=== PATIENT | female | born 1965 | race Caucasian/White ===

== ENCOUNTER 2017-08-20 15:00 | Emergency (ER) | payer OTHER ==
[2017-08-20 15:58] LABS: BASOPHILS # (AUTO) 0.1 10^3/uL (0.0-0.1); BASOPHILS % (AUTO) 0.9 %; EOSINOPHILS # (AUTO) 0.2 10^3/uL (0.0-0.7); EOSINOPHILS % (AUTO) 2.7 %; HGB - HEMOGLOBIN 13.8 g/dL (12.0-16.0); LYMPHOCYTES # (AUTO) 2.6 10^3/uL (1.5-3.5); LYMPHOCYTES % (AUTO) 36.8 %; MEAN CORPUSCULAR HEMOGLOBIN 28.2 pg (27.0-31.0); MEAN CORPUSCULAR HGB CONC 33.2 g/dL (32.0-36.0); MEAN CORPUSCULAR VOLUME 85.1 fL (81.0-99.0); MEAN PLATELET VOLUME 9.2 fL (7.9-10.8); MONOCYTES # (AUTO) 0.6 10^3/uL (0.0-1.0); MONOCYTES % (AUTO) 8.7 %; NEUTROPHILS # (AUTO) 3.6 10^3/uL (1.5-6.6); NEUTROPHILS % (AUTO) 50.9 %; PLT - PLATELET COUNT 351 10^3/uL (130-450); RED CELL DISTRIBUTION WIDTH 14.6 % (12.0-15.0); WHITE BLOOD COUNT 7.1 x10^3/uL (4.8-10.8)
[2017-08-20 16:06] LABS: BILIRUBIN,TOTAL 0.6 mg/dL (0.2-1.0); CALCIUM 9.2 mg/dL (8.5-10.3); CREATININE 0.7 mg/dL (0.4-1.0); MAGNESIUM 1.9 mg/dL (1.7-2.8); TOTAL PROTEIN 7.9 g/dL (6.7-8.2)
[2017-08-20 17:35] VITALS: BP 113/82
--- NOTE | 2017-08-20 17:41 | Ultrasound Report ---
EXAM: BILATERAL LOWER EXTREMITY VENOUS ULTRASOUND EXAM DATE: 08/20/2017 05:24 PM. CLINICAL HISTORY: Leg pains. COMPARISON: None. TECHNIQUE: Real-time sonographic vascular imaging was performed by the power generation turbine room operator through the lower extremities utilizing both color-flow and Doppler spectral analysis. Multiple patient admitting representative static i mages were saved for review. FINDINGS: Right: Common Femoral Vein (CFV): Normal. CFV-GSV Junction: Normal. Profunda Femoral Vein (PFV): Normal. Femoral Vein (FV) Prox: Normal. Femoral Vein (FV) Mid: Normal. Femoral Vein (FV) Dist: Normal. Popliteal Vein: Normal. Posterior Tibial Veins: Normal. Peroneal Veins: Normal. Left: Common Femoral Vein (CFV): Normal. CFV-GSV Junction: Normal. Profunda Femoral Vein (PFV): Normal. Femoral Vein (FV) Prox: Normal. Femoral Vein (FV) Mid: Normal. Femoral Vein (FV) Dist: Normal. Popliteal Vein: Normal. Posterior Tibial Veins: Normal. Peroneal Veins: Normal. Other: None. IMPRESSION: No evidence for deep venous thrombosis bilaterally. [facility] Referring Provider Line: [phone] SITE ID: [id number]
--- NOTE | 2017-08-20 17:41 | Ultrasound Preliminary Report ---
Exam: US DUPLEX EXT VEINS BILATERAL IMPRESSION: No evidence for deep venous thrombosis bilaterally. [facility] SITE ID: [id number]
--- NOTE | 2017-08-20 18:00 | ED Physician Documentation ---
PD HPI LOWER EXT INJURY - Stated complaint Stated Complaint: SOA, LEG PX - Chief complaint Chief Complaint: General - History obtained from History obtained from: Patient - History of Present Illness PD HPI LOW EXT INJURY LOCATION: Both Type of injury: Other (having cramping pains intermittently for few days.). No : Fall, Twist Timing - onset: How many weeks ago (1-2 weeks of intermittent leg cramps, more on right calf, without edema per se. Some dyspnea at times. Not exertional leg pains. No noted injury.) Timing - details: Gradual onset, Intermittant Improved by: No: Rest Worsened by: Moving Associated symptoms: No: Weakness, Numbness, Swelling Contributing factors: No: Anticoagulated Similar symptoms before: Has not had sx before Recently seen: Clinic (seen in clinic and had outpt ddmier that was elevated so referred to ED for U/S.) Review of Systems Constitutional: denies: Fever, Chills Nose: denies: Rhinorrhea / runny nose, Congestion Throat: denies: Sore throat Cardiac: denies: Chest pain / pressure, Palpitations Respiratory: reports: Dyspnea. denies: Cough, Wheezing GI: denies: Abdominal Pain, Nausea, Vomiting Skin: denies: Rash, Lesions Musculoskeletal: reports: Extremity pain. 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 Home Medications: Ambulatory Orders Medication Instructions Recorded Confirmed Levothyroxine Sodium [Tirosint] 125 mcg PO DAILY 11/07/14 08/20/17 buPROPion [Wellbutrin Sr] 100 mg PO DAILY 11/07/14 08/20/17 - Allergies Allergies/Adverse Reactions: Allergies Allergy/AdvReac Type Severity Reaction Status Date / Time meperidine HCl * Allergy Headache Verified 08/20/17 15:14 [From Demerol] - Social History Does the pt smoke?: No Smoking Status: Never smoker Does the pt drink ETOH?: No Does the pt have substance abuse?: No - Immunizations Immunizations are current?: Yes PD ED PE NORMAL - Vitals Vital signs reviewed: Yes - General General: Alert and oriented X 3, No acute distress, Well developed/nourished - HEENT HEENT: Pharynx benign - Neck Neck: Supple, no meningeal sign, No adenopathy - Cardiac Cardiac: RRR, No murmur - Respiratory Respiratory: Clear bilaterally - Abdomen Abdomen: Normal bowel sounds, Soft, Non tender, Non distended - Back Back: No CVA TTP - Derm Derm: Normal color, Warm and dry - Extremities Extremities: No deformity, No tenderness to palpate, Normal ROM s pain, No edema , Other (some tenderness calves, more to the right. ) - Neuro Neuro: Alert and oriented X 3, No motor deficit, Normal speech Results - Vitals Vitals: Oxygen O2 Source Room air - Labs Labs: Laboratory Tests 08/20/17 08/20/17 08/20/17 15:20 15:20 15:20 WBC 7.1 RBC 4.90 Hgb 13.8 Hct 41.7 MCV 85.1 MCH 28.2 MCHC 33.2 RDW 14.6 Plt Count 351 MPV 9.2 Neut # 3.6 Lymph # 2.6 Titus # 0.6 Eos # 0.2 Baso # 0.1 Absolute Nucleated RBC 0.01 Nucleated RBC % 0.1 Sodium 136 Potassium 3.5 Chloride 101 Carbon Dioxide 25 Anion Gap 10.0 BUN 14 Creatinine 0.7 Estimated GFR (MDRD) 88 L Glucose 96 Calcium 9.2 Magnesium 1.9 Total Bilirubin 0.6 AST 34 ALT 31 Alkaline Phosphatase 70 Troponin I < 0.04 B-Natriuretic Peptide Total Protein 7.9 Albumin 4.0 Globulin 3.9 Albumin/Globulin Ratio 1.0 Lipase 25 08/20/17 15:20 WBC RBC Hgb Hct MCV MCH MCHC RDW Plt Count MPV Neut # Lymph # Titus # Eos # Baso # Absolute Nucleated RBC Nucleated RBC % Sodium Potassium Chloride Carbon Dioxide Anion Gap BUN Creatinine Estimated GFR (MDRD) Glucose Calcium Magnesium Total Bilirubin AST ALT Alkaline Phosphatase Troponin I B-Natriuretic Peptide 23 Total Protein Albumin Globulin Albumin/Globulin Ratio Lipase - Rads (name of study) duplex U/S legs Radiology: Prelim report reviewed (no DVTs) PD MEDICAL DECISION MAKING - ED course Complexity details: reviewed results (venous U/S is negative for DVT. Labs are good with low normal K, but not liekly cause for cramps at that level. ), re- evaluated patient, considered differential (not exertional, so not sounding claudication per se. No edema but with leg crampings, will check U/S (since already had outpt d-dimer that was some elevated) and lytes. ), d/w patient Departure - Departure Disposition: 01 Home, Self Care Clinical Impression: Leg cramping Clinical Impression: (Ruled Out): DVT (deep venous thrombosis) Record reviewed to determine appropriate education?: Yes Comments: No signs of blood clots on your ultrasound. Drink lots of fluids. Use some Tylenol ibuprofen if needed for pains. Follow-up with your primary care if persistent problems. Discharge Date/Time: 08/20/17 18:15
== END 2017-08-20 18:15 | disposition home or self-care (01) ==
LOC: ED 15:00
DX: R25.2 Cramp and spasm (principal); E78.00 Pure hypercholesterolemia, unspecified; E03.9 Hypothyroidism, unspecified; Z86.718 Personal history of other venous thrombosis and embolism; Z86.711 Personal history of pulmonary embolism
CPT/HCPCS: 36415; 80053; 83690; 83735; 83880; 84484; 85025; 93970; 99283

== ENCOUNTER 2018-04-22 09:34 | Outpatient (CLI) | payer BC ==
--- NOTE | 2018-04-23 09:11 | Mammography Report ---
Reason: SCREENING MAMMO Procedure Date: 04/22/2018 Accession Number: [id number] / [id number] Procedure: MGN - Screening Mammo Dig Bilat CPT Code: FULL RESULT: EXAM: Screening Mammo Dig Bilat DATE: 04/22/2018 9:55 AM CLINICAL HISTORY: Screening encounter. History of early menses. TECHNIQUE: Bilateral CC, laterally exaggerated CC, MLO views were obtained. COMPARISON: 07/07/2015 through 11/21/2012. FINDINGS: The breasts demonstrate scattered fibroglandular densities bilaterally. No suspicious masses, clustered microcalcifications, or regions of architectural distortion are identified. IMPRESSION: Negative examination RECOMMENDATION: Routine annual screening unless otherwise clinically indicated. BIRADS CATEGORY 1: Negative STANDARD QUALIFYING STATEMENTS: 1. This examination was reviewed with the aid of Computer-Aided Detection (CAD). 2. A negative or benign imaging report should not preclude biopsy if clinically suspicious findings are present. 3. Dense breasts may obscure an underlying neoplasm. 4. This examination was reviewed without the aid of 3D breast imaging (tomosynthesis).
== END 2018-04-22 09:35 | disposition home or self-care (01) ==
LOC: DI.N 09:34
DX: Z12.31 Encounter for screening mammogram for malignant neoplasm of breast (principal)
CPT/HCPCS: 77067

== ENCOUNTER 2018-10-18 14:47 | Emergency (ER) | payer BC ==
--- NOTE | 2018-10-18 14:58 | ED Physician Documentation ---
History of Present Illness - Stated complaint Stated Complaint: SOA/TIGHT CHEST - Chief complaint Chief Complaint: Cardiac - History obtained from History obtained from: Patient - Additonal information Additional information: Patient is a 53-year-old female presenting with about a week and a half of intermittent chest pressure and shortness of breath with nonproductive cough, but no fever. Patient does have history of DVT and PE, but is no longer on anticoagulation. It was determined that the likely cause of her DVT was being placed on hormone therapy for menopause, which she is no longer taking. Patient denies leg swelling, pain, skin changes, recent travel, immobility. 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 - Present Medications Home Medications: Ambulatory Orders Medication Instructions Recorded Confirmed RX: Levothyroxine Sodium [Tirosint] 125 mcg PO DAILY 11/07/14 08/20/17 buPROPion [Wellbutrin Sr] 100 mg PO DAILY 11/07/14 08/20/17 RX: Aspirin 325 mg DAILY PM 10/18/18 10/18/18 - Allergies Allergies/Adverse Reactions: Allergies Allergy/AdvReac Type Severity Reaction Status Date / Time meperidine HCl * Allergy Headache Verified 10/18/18 14:55 [From Demerol] - Social History Does the pt smoke?: No Smoking Status: Never smoker Does the pt drink ETOH?: No Does the pt have substance abuse?: No - Immunizations Immunizations are current?: Yes Results - Vitals Vitals: Vital Signs - 24 hr 10/18/18 10/18/18 10/18/18 14:51 15:34 17:43 Temperature 36.5 C 36.6 C Heart Rate 115 H 107 H 97 Respiratory 18 18 16 Rate Blood Pressure 173/95 H 152/82 H 111/76 O2 Saturation 99 97 99 Oxygen O2 Source Room air - EKG (time done) 1502 Rate: Rate (enter#) (108) Rhythm: Sinus tachycardia - Labs Labs: Laboratory Tests 10/18/18 10/18/18 10/18/18 15:20 15:20 15:20 WBC 7.0 RBC 4.82 Hgb 14.0 Hct 41.9 MCV 86.9 MCH 29.0 MCHC 33.4 RDW 14.2 Plt Count 385 MPV 10.3 Neut # (Auto) 4.0 Lymph # (Auto) 2.1 [place] # (Auto) 0.6 Eos # (Auto) 0.2 Baso # (Auto) 0.1 Absolute Nucleated RBC 0.00 Nucleated RBC % 0.0 Sodium 140 Potassium 3.6 Chloride 103 Carbon Dioxide 26 Anion Gap 11.0 BUN 14 Creatinine 0.8 Estimated GFR (MDRD) 75 L Glucose 150 H Calcium 9.4 Total Bilirubin 0.7 AST 34 ALT 39 Alkaline Phosphatase 69 Troponin I < 0.04 Troponin I High Sens 4.7 Total Protein 8.0 Albumin 4.1 Globulin 3.9 Albumin/Globulin Ratio 1.1 Lipase 33 TSH 10/18/18 15:21 WBC RBC Hgb Hct MCV MCH MCHC RDW Plt Count MPV Neut # (Auto) Lymph # (Auto) [place] # (Auto) Eos # (Auto) Baso # (Auto) Absolute Nucleated RBC Nucleated RBC % Sodium Potassium Chloride Carbon Dioxide Anion Gap BUN Creatinine Estimated GFR (MDRD) Glucose Calcium Total Bilirubin AST ALT Alkaline Phosphatase Troponin I Troponin I High Sens Total Protein Albumin Globulin Albumin/Globulin Ratio Lipase TSH 1.95 PD MEDICAL DECISION MAKING - ED course Complexity details: reviewed results, re-evaluated patient, considered differential, d/w patient, d/w family ED course: Patient presenting with concerns for recurrence of PE, particularly as patient is not anticoagulated. Do not have high suspicion for OK, ACS, unstable angina, dissection, aneurysm, but considered. EKG and cardiac enzymes obtained which not reflect ischemia or other significant arrhythmia. Chest x-ray also did not show significant or concerning findings. No signs of pneumonia, pulmonary edema, or other pathology. Remainder of work-up also returned relatively unremarkable. CTA chest obtained which not find evidence of PE or other complication. At this time, feel that patient is safe to discharge home and discussed other etiologies including environmental allergies, esophageal spasm, GERD, anxiety with patient and family. Also discussed other supportive cares, return precautions and need for follow-up. Patient voiced understanding and is comfortable with discharge plan Departure - Departure Disposition: 01 Home, Self Care Clinical Impression: Chest wall pain Condition: Good Instructions: ED Chest Pain Atypical Unkn Cause Follow-Up: DAVID JOHNSON PA-C [Primary Care Provider] - Within 3 Days Comments: Please continue any home medications as previously instructed. Please follow-up with your primary care physician in next 2 to 3 days and return to ED sooner if experience worsening symptoms. Discharge Date/Time: 10/18/18 18:05
[2018-10-18] MEDS ORDERED: SODIUM CHLORIDE 0.9% 1,000 ML IV ONE (15:19)
[2018-10-18 15:28] LABS: BASOPHILS # (AUTO) 0.1 10^3/uL (0.0-0.1); BASOPHILS % (AUTO) 0.9 %; EOSINOPHILS # (AUTO) 0.2 10^3/uL (0.0-0.7); EOSINOPHILS % (AUTO) 2.9 %; LYMPHOCYTES # (AUTO) 2.1 10^3/uL (1.5-3.5); LYMPHOCYTES % (AUTO) 30.5 %; MEAN CORPUSCULAR HGB CONC 33.4 g/dL (32.0-36.0); MEAN CORPUSCULAR VOLUME 86.9 fL (81.0-99.0); MEAN PLATELET VOLUME 10.3 fL (7.9-10.8); MONOCYTES # (AUTO) 0.6 10^3/uL (0.0-1.0); MONOCYTES % (AUTO) 8.2 %; NEUTROPHILS % (AUTO) 57.2 %; PLT - PLATELET COUNT 385 10^3/uL (130-450); RED BLOOD COUNT 4.82 10^6/uL (4.20-5.40); RED CELL DISTRIBUTION WIDTH 14.2 % (12.0-15.0)
[2018-10-18 15:37] LABS: ALBUMIN 4.1 g/dL (3.2-5.5); ALBUMIN/GLOBULIN RATIO 1.1 (1.0-2.2); BILIRUBIN,TOTAL 0.7 mg/dL (0.2-1.0); CALCIUM 9.4 mg/dL (8.5-10.3); CREATININE 0.8 mg/dL (0.4-1.0)
[2018-10-18 15:42] LABS: TROPONIN I < 0.04 ng/mL (<0.49)
--- NOTE | 2018-10-18 15:44 | XRAY Report ---
Reason: CP/SOB Procedure Date: 10/18/2018 Accession Number: [id number] / [id number] Procedure: XR - Chest 1 View X-Ray CPT Code: 21567 FULL RESULT: EXAM: CHEST RADIOGRAPHY EXAM DATE: 10/18/2018 03:31 PM. CLINICAL HISTORY: Chest pain and shortness of breath for 2 weeks. COMPARISON: CHEST 1 VIEW 11/07/2014 12:47 PM. TECHNIQUE: 1 view. FINDINGS: Lungs/Pleura: No focal opacities evident. No pleural effusion. No pneumothorax. Mediastinum: Within exam limitations, the cardiomediastinal contour is unchanged with apparent mild borderline cardiomegaly possibly due to AP portable technique. Other: None. IMPRESSION: Stable examination with no acute superimposed cardiopulmonary abnormality. [facility]
[2018-10-18] MEDS ORDERED: IOVERSOL 320 100 ML VIAL IVP ONE ×2 (16:33→16:57)
--- NOTE | 2018-10-18 17:24 | CT Report ---
Reason: history of PE, concern for recurrence Procedure Date: 10/18/2018 Accession Number: [id number] / [id number] Procedure: CT - ANGIO CHEST W/WO CPT Code: FULL RESULT: EXAM: CT ANGIOGRAM CHEST EXAM DATE: 10/18/2018 04:50 PM. CLINICAL HISTORY: History of PE, concern for recurrence. COMPARISON: CHEST 1 VIEW 10/18/2018 3:17 PM. TECHNIQUE: Routine helical imaging was performed through the chest in the pulmonary arterial phase. IV Contrast: OPTI 320 80 mL. Reconstructions: Coronal 3-D MIP reconstructions.Sagittal and coronal. In accordance with CT protocol optimization, one or more of the following dose reduction techniques were utilized for this exam: automated exposure control, adjustment of mA and/or KV based on patient size, or use of iterative reconstructive technique. FINDINGS: Pulmonary Arteries: Diagnostic quality: Adequate through the proximal segmental arteries. The patient was scanned twice due to suboptimal opacification of the pulmonary arteries on the first attempt. No evidence for acute pulmonary emboli. Lungs/Pleura: No consolidation, pleural effusion, or pneumothorax. Mediastinum: Heart size is normal. No pericardial effusion. No mediastinal lymphadenopathy. Thoracic Aorta: Normal in course and caliber. No evidence of aneurysm or dissection. Upper Abdomen: Postoperative changes near the gastroesophageal junction. Other: No acute fracture or dislocation. Multilevel degenerative disk disease most significant at T11-T12. IMPRESSION: No evidence of acute pulmonary embolus to the level of the proximal segmental pulmonary arteries. No acute cardiopulmonary findings. [facility]
[2018-10-18 17:47] VITALS: BP 111/76
== END 2018-10-18 18:05 | disposition home or self-care (01) ==
LOC: ED 14:47
DX: R07.89 Other chest pain (principal); Z86.718 Personal history of other venous thrombosis and embolism; Z86.711 Personal history of pulmonary embolism
CPT/HCPCS: 36415; 71045; 71275; 83690; 84484; 93005; 96360; 96361; 99281; 99283; Q9967; 80053; 84443; 85025

== ENCOUNTER 2019-07-28 15:30 | Emergency (ER) | payer BC ==
[2019-07-28 15:46] VITALS: BP 192/97
--- NOTE | 2019-07-28 16:58 | Ultrasound Report ---
Reason: LLE pain, h/o dvt Procedure Date: 07/28/2019 Accession Number: [id number] / [id number] Procedure: US - Duplex Ext Veins Left CPT Code: Final Report FULL RESULT: EXAM: LEFT LOWER EXTREMITY VENOUS ULTRASOUND EXAM DATE: 07/28/2019 04:53 PM. CLINICAL HISTORY: Left lower extremity pain, history of DVT. COMPARISON: None. TECHNIQUE: Real-time sonographic vascular imaging was performed by the terrazzo polisher through the lower extremity utilizing both color-flow and Doppler spectral analysis. Multiple labor service representative static images were saved for review. FINDINGS: Common Femoral Vein (CFV): Normal. CFV-GSV Junction: Normal. Profunda Femoral Vein (PFV): Normal. Femoral Vein (FV) Prox: Normal. Femoral Vein (FV) Mid: Normal. Femoral Vein (FV) Dist: Normal. Popliteal Vein: Normal. Posterior Tibial Veins: Normal. Peroneal Veins: Normal. Contralateral Side CFV: Normal. Other: None. IMPRESSION: No evidence for deep venous thrombosis. [facility]
--- NOTE | 2019-07-28 17:03 | ED Physician Documentation ---
History of Present Illness - Stated complaint Stated Complaint: RT LEG PX - Chief complaint Chief Complaint: Ext Problem - History obtained from History obtained from: Patient - Additonal information Additional information: Patient with left lower extremity pain for the past several days from the ankle to the hip. History of DVT and PEs. Concerned about recurrence. Worse with movement and better with rest. No fevers. No trauma. 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 Home Medications: Ambulatory Orders Medication Instructions Recorded Confirmed Levothyroxine Sodium [Tirosint] 125 mcg PO DAILY 11/07/14 08/20/17 buPROPion [Wellbutrin Sr] 100 mg PO DAILY 11/07/14 08/20/17 Aspirin 325 mg DAILY PM 10/18/18 10/18/18 - Allergies Allergies/Adverse Reactions: Allergies Allergy/AdvReac Type Severity Reaction Status Date / Time meperidine HCl * Allergy Headache Verified 07/28/19 15:41 [From Demerol] - Social History Does the pt smoke?: No Smoking Status: Never smoker Does the pt drink ETOH?: No Does the pt have substance abuse?: No - Immunizations Immunizations are current?: Yes PD ED PE NORMAL - Vitals Vital signs reviewed: Yes - General General: Alert and oriented X 3, No acute distress - HEENT HEENT: Moist mucous membranes - Derm Derm: Warm and dry - Extremities Extremities: Normal ROM s pain, No edema, No calf tenderness / cord - Neuro Neuro: Alert and oriented X 3 - Psych Psych: Normal mood Results - Vitals Vitals: Vital Signs - 24 hr 07/28/19 15:41 Temperature 36.7 C Heart Rate 105 H Respiratory 17 Rate Blood Pressure 192/97 H O2 Saturation 97 Oxygen O2 Source Room air - Rads (name of study) Duplex ultrasound left lower extremity Radiology: Prelim report reviewed, EMP read contemporaneously, See rad report (No DVT) PD MEDICAL DECISION MAKING - ED course Complexity details: reviewed results, considered differential, d/w patient ED course: Patient with left lower extremity pain of unclear etiology. No DVT on ultrasound. We will continue supportive care and have her follow-up with her doctor. Patient counseled regarding signs and symptoms for which I believe and urgent re-evaluation would be necessary. Patient with good understanding of and agreement to plan and is comfortable going home at this time This document was made in part using voice recognition software. While efforts are made to proofread this document, sound alike and grammatical errors may occur. Departure - Departure Disposition: 01 Home, Self Care Clinical Impression: Leg pain Qualifiers: Laterality: left Qualified Code(s): M79.605 - Pain in left leg Condition: Good Instructions: ED Acute Pain [facility] Follow-Up: DAVID JOHNSON PA-C [Primary Care Provider] - As Needed Comments: Your ultrasound does not show any evidence of DVT today. Return if you worsen. Follow-up with your doctor for further care. Discharge Date/Time: 07/28/19 17:43
== END 2019-07-28 17:43 | disposition home or self-care (01) ==
LOC: ED 15:30
DX: M79.605 Pain in left leg (principal)
CPT/HCPCS: 99283

== ENCOUNTER 2020-03-04 15:18 | Outpatient (CLI) | payer OTHER | END 2020-03-04 15:19 | disposition home or self-care (01) | LOC: COV 15:18 | PROVIDERS: ATTEND Family Medicine | DX: R05 Cough (principal); R53.83 Other fatigue; R07.0 Pain in throat; R19.7 Diarrhea, unspecified; Z20.828 Contact with and (suspected) exposure to other viral communicable diseases ==

== ENCOUNTER 2020-06-23 16:46 | Outpatient (CLI) | payer BC ==
--- NOTE | 2020-06-25 11:32 | Ultrasound Report ---
PROCEDURE: Pelvic w/Transvaginal INDICATIONS: UTERINE LEIOMYOMA TECHNIQUE: Real-time scanning was performed of the pelvic organs, with image documentation. Additional endovagi nal scanning was necessary due to incomplete visualization of the adnexal and endometrial structures by transabdominal scanning. COMPARISON: None. FINDINGS: No pathologic free abdominal or pelvic fluid. Uterus: Uterus is normal in size at 3.8 x 4.6 x 6.6 cm. The endometrium measures 4.4 mm in combined thickness, heterogeneous in echotexture. Note is made of a soft tissue prominence at the low uterine segment/cervical margin anteriorly, subserosal, measuring 7 x 9 x 9 mm, in the area of a previously present larger lower uterine segment anterior reported fibroid, from 04/23/2014. This previously had m easured 1.8 x 1.7 x 1.7 cm.. There is a right-sided subserosal pedunculated 1.7 x 1.8 x 1.7 cm fibroi d.. Ovaries: Not identified bilaterally likely due to postmenopausal ovarian atrophy and overlying bowel gas. IMPRESSION: There is a involuting low uterine segment anterior fibroid now measuring only 7 x 9 x 9 mm and previo usly measuring up to 1.8 cm. A new lateral right-sided subserosal pedunculated fibroid is now seen, m easuring only 1.8 cm in maximal dimension. Nonvisualization of the ovaries bilaterally as noted above. Reviewed by: Herbert Rodarte MD on 06/25/2020 11:30 AM PDT Approved by: Herbert Rodarte MD on 06/25/2020 11:30 AM PDT Station ID: [id number]
== END 2020-06-23 16:47 | disposition home or self-care (01) ==
LOC: DI 16:46
PROVIDERS: ATTEND Physician Assistant
DX: Z12.31 Encounter for screening mammogram for malignant neoplasm of breast (principal); N64.89 Other specified disorders of breast; D25.2 Subserosal leiomyoma of uterus

== ENCOUNTER 2020-08-03 10:19 | Outpatient (CLI) | payer OTHER ==
--- NOTE | 2020-08-04 12:16 | Mammography Report ---
UNILATERAL RIGHT DIGITAL DIAGNOSTIC MAMMOGRAM 3D/2D: 08/03/2020 CLINICAL: Patient returns today to evaluate a density in the right breast. Comparison is made to exams dated: 06/23/2020 mammogram, 04/22/2018 mammogram, 07/07/2015 mammogram, 04/02 mammogram, and 11/21/2012 mammogram - [facility]. There are scattered fibrog landular elements in right breast. The oval asymmetry with obscured and indistinct margins in the right breast middle depth superior reg ion seen on the mediolateral oblique view only is not seen on additional views. No other significant masses or calcifications are seen in the breast. IMPRESSION: BENIGN There is no mammographic evidence of malignancy. A 1 year screening mammogram is recommended. This exam was interpreted at Station ID: [id number]. NOTE: For mammograms, a report in lay terms will be sent to the patient. Approximately 15% of breast malignancies will not be visualized mammographically. In the management of a palpable breast mass, a negative mammogram must not discourage biopsy of a clinically suspicious lesion. Electronically Signed By: Fortino Marsh M.D. ddp/:08/03/2020 11:07:54 ACR BI-RADS Category 2: Benign Finding(s) 3342F PARENCHYMAL PATTERN: (A) - The breast(s) demonstrate(s) scattered fibroglandular densities. BI-RADS CATEGORY: (2) - 2 RECOMMENDATION: (ANNUAL) - Recommend routine annual screening mammography. [id number] 1 year screening LATERALITY: (B)
== END 2020-08-03 10:20 | disposition home or self-care (01) ==
LOC: DI 10:19
PROVIDERS: ATTEND Physician Assistant
DX: R92.8 Other abnormal and inconclusive findings on diagnostic imaging of breast (principal)

== ENCOUNTER 2020-09-07 09:25 | Day surgery (SDC) | payer OTHER ==
[2020-09-07] MEDS ORDERED: LACTATED RINGERS 1,000 ML IV ONE ×2 (09:43→10:52)
[2020-09-07] MEDS ORDERED: MIDAZOLAM 2 MG/2 ML VIAL ONE ×4 (10:18→10:49)
[2020-09-07] MEDS ORDERED: fentaNYL 250 MCG/5 ML VIAL ONE (10:33)
[2020-09-07] MEDS ORDERED: ONDANSETRON 4 MG/2 ML VIAL ONE (10:43)
[2020-09-07 11:18] VITALS: BP 118/71
--- NOTE | 2020-09-21 08:27 | OPERATIVE REPORT ---
Operative Report - General Planned Procedure: Hemorrhoid banding after colonoscopy Pre-Op Diagnosis: Symptomatic hemorrhoids Procedure Performed: Hemorrhoid banding after colonoscopy Post Op Diagnosis: Symptomatic hemorrhoids - Procedure Note Primary Surgeon: Lizbeth Anesthesia Technique: MAC Pathology: None Estimated Blood Loss (mL): 1 Findings: Full vanessa of enlarged internal hemorrhoids without excoriation or bleeding Complications: None apparent - Other Other Information/Narrative: Colonoscopy was completed immediately prior to the banding procedure. Timeout was done at the start of the colonoscopy procedure.The patient remained sedated with monitored anesthesia care at this time. All elements of the surgical safety checklist were followed before, during, and after this procedure. The anoscope with obturator was lubricated and placed in the patient's anal canal. The obturator was removed and the slots aligned to allow access to 3 column internal hemorrhoids. The device, the 5skills multi band ligator-short shot-was placed into the anal canal. The tip of the device was placed in contact with the tissue to be treated beginning at the 4 o'clock position. The suction port was closed. A single band was deployed and the suction port released.The band was noted to be in place.We next addressed the hemorrhoid complex at 7:00.The tip of the device was placed in contact with the tissue, the suction port covered, a band deployed, the suction port released. Again we were able to see that the band was in place.We next addressed the hemorrhoid at the 11 o'clock position. This was the smallest of the 3. The tip of the device was placed in contact with the tissue, the suction port covered, a band deployed, the suction port released. Again we were able to see that the band was in place.Examination of the anal count canal revealed all [address] The anoscope was removed and the procedure concluded. The patient tolerated the procedure well. She was allowed awaken from sedation and taken to the postanesthesia care unit in good condition.
== END 2020-09-07 09:26 | disposition home or self-care (01) ==
LOC: SDS 09:25
PROVIDERS: ATTEND Surgery
DX: Z12.11 Encounter for screening for malignant neoplasm of colon (principal); K57.30 Diverticulosis of large intestine without perforation or abscess without bleeding; K64.8 Other hemorrhoids
CPT/HCPCS: 45378; 46221; J3010; J7120

== ENCOUNTER 2021-10-05 11:34 | Outpatient (CLI) | payer OTHER ==
[2021-10-05 17:32] LABS: BASOPHILS # (AUTO) 0.1 10^3/uL (0.0-0.1); EOSINOPHILS # (AUTO) 0.2 10^3/uL (0.0-0.7); EOSINOPHILS % (AUTO) 3.9 %; HCT - HEMATOCRIT 43.3 % (37.0-47.0); HGB - HEMOGLOBIN 13.9 g/dL (12.0-16.0); LYMPHOCYTES # (AUTO) 2.2 10^3/uL (1.5-3.5); LYMPHOCYTES % (AUTO) 42.6 %; MEAN CORPUSCULAR HEMOGLOBIN 28.7 pg (27.0-31.0); MEAN CORPUSCULAR HGB CONC 32.1 g/dL (32.0-36.0); MEAN CORPUSCULAR VOLUME 89.3 fL (81.0-99.0); MEAN PLATELET VOLUME 11.5 fL (7.9-10.8); MONOCYTES # (AUTO) 0.5 10^3/uL (0.0-1.0); MONOCYTES % (AUTO) 9.2 %; NEUTROPHILS # (AUTO) 2.2 10^3/uL (1.5-6.6); NEUTROPHILS % (AUTO) 43.1 %; PLT - PLATELET COUNT 366 10^3/uL (130-450); RED BLOOD COUNT 4.85 10^6/uL (4.20-5.40); RED CELL DISTRIBUTION WIDTH 14.4 % (12.0-15.0); WHITE BLOOD COUNT 5.1 x10^3/uL (4.8-10.8)
[2021-10-05 17:49] LABS: ALBUMIN/GLOBULIN RATIO 1.1 (1.0-2.2); BILIRUBIN,TOTAL 0.6 mg/dL (0.2-1.0); CALCIUM 9.4 mg/dL (8.5-10.3); CREATININE 0.8 mg/dL (0.4-1.0); POTASSIUM 4.2 mmol/L (3.5-5.0); TOTAL PROTEIN 7.8 g/dL (6.7-8.2)
== END 2021-10-05 11:35 | disposition home or self-care (01) ==
LOC: LAB.N 11:34
PROVIDERS: ATTEND Nurse Practitioner
DX: M54.2 Cervicalgia (principal)
CPT/HCPCS: 36415; 80053; 85025; 85379

== ENCOUNTER 2022-06-13 10:31 | Outpatient (CLI) | payer OTHER ==
[2022-06-13 10:50] LABS: BASOPHILS # (AUTO) 0.1 10^3/uL (0.0-0.1); EOSINOPHILS # (AUTO) 0.2 10^3/uL (0.0-0.7); EOSINOPHILS % (AUTO) 3.5 %; HCT - HEMATOCRIT 43.7 % (37.0-47.0); HGB - HEMOGLOBIN 13.9 g/dL (12.0-16.0); LYMPHOCYTES # (AUTO) 1.9 10^3/uL (1.5-3.5); LYMPHOCYTES % (AUTO) 36.5 %; MEAN CORPUSCULAR HEMOGLOBIN 27.9 pg (27.0-31.0); MEAN CORPUSCULAR HGB CONC 31.8 g/dL (32.0-36.0); MEAN CORPUSCULAR VOLUME 87.6 fL (81.0-99.0); MEAN PLATELET VOLUME 9.8 fL (7.9-10.8); MONOCYTES # (AUTO) 0.5 10^3/uL (0.0-1.0); MONOCYTES % (AUTO) 9.1 %; NEUTROPHILS # (AUTO) 2.6 10^3/uL (1.5-6.6); NEUTROPHILS % (AUTO) 49.7 %; PLT - PLATELET COUNT 361 10^3/uL (130-450); RED BLOOD COUNT 4.99 10^6/uL (4.20-5.40); RED CELL DISTRIBUTION WIDTH 14.2 % (12.0-15.0); WHITE BLOOD COUNT 5.2 x10^3/uL (4.8-10.8)
[2022-06-13 11:08] LABS: % IRON SATURATION 26 % (20-50); ALKALINE PHOSPHATASE 63 IU/L (42-121); ALT ALANINE AMINOTRANSFERASE 28 IU/L (10-60); AST ASPARTATE AMINOTRANSFERASE 28 IU/L (10-42); BILIRUBIN,TOTAL 0.5 mg/dL (0.2-1.0); BUN - BLOOD UREA NITROGEN 16 mg/dL (6-20); CALCIUM 8.9 mg/dL (8.5-10.3); CARBON DIOXIDE - CO2 27 mmol/L (21-32); CHLORIDE 102 mmol/L (101-111); CHOL/HDL RATIO 2.4 (<4.4); CHOLESTEROL 194 mg/dL; CREATININE 0.7 mg/dL (0.4-1.0); GFR - MDRD 87 (>89); GLUCOSE 109 mg/dL (70-100); HDL CHOLESTEROL 81 mg/dL; IRON 103 ug/dL (28-170); LDL CHOLESTEROL,CALCULATED 99 mg/dL; LDL/HDL RATIO 1.2 (<4.4); POTASSIUM 4.1 mmol/L (3.5-5.0); SODIUM 137 mmol/L (135-145); TOTAL IRON BINDING CAPACITY 399 ug/dL (250-450); TOTAL PROTEIN 7.9 g/dL (6.7-8.2); TRANSFERRIN 285 mg/dL (192-382); TRIGLYCERIDES 69 mg/dL; VLDL CHOLESTEROL 14 mg/dL
[2022-06-13 11:12] LABS: BILIRUBIN,URINE NEGATIVE (NEGATIVE); GLUCOSE, URINE (UA) NEGATIVE (NEGATIVE); KETONES,URINE (UA) NEGATIVE (NEGATIVE); LEUKOCYTE ESTERASE, URINE NEGATIVE (NEGATIVE); NITRITE,URINE NEGATIVE (NEGATIVE); OCCULT BLOOD,URINE NEGATIVE (NEGATIVE); PROTEIN,URINE NEGATIVE (NEGATIVE); UROBILINOGEN,URINE 0.2 (NORMAL) E.U./dL (NORMAL)
[2022-06-13 11:13] LABS: CLARITY,URINE CLEAR (CLEAR)
[2022-06-13 11:20] LABS: THYROID STIMULATING HORMONE 1.06 uIU/mL (0.34-5.60)
[2022-06-13 11:22] LABS: FREE T4 (FREE THYROXINE) 1.16 ng/dL (0.58-1.64)
[2022-06-13 11:23] LABS: FREE T3 3.31 pg/mL (2.5-3.9)
[2022-06-13 11:24] LABS: WBC,URINE 0-3 /HPF (0-5)
[2022-06-13 11:25] LABS: BACTERIA,URINE Rare /HPF (None Seen); RBC,URINE 0-5 /HPF (0-5); SQUAMOUS EPITHELIAL CELL,UR RARE Squamous (<= Few)
[2022-06-13 11:28] LABS: FERRITIN 23.5 ng/mL (11.0-306.8)
[2022-06-13 11:44] LABS: ESTIMATED AVERAGE GLUCOSE 126 mg/dL (70-100)
[2022-06-14 04:08] LABS: VITAMIN D 25-HYDROXY 43.9 ng/mL (30.0-100.0)
== END 2022-06-13 10:32 | disposition home or self-care (01) ==
LOC: LAB 10:31
PROVIDERS: ATTEND Nurse Practitioner
DX: D50.9 Iron deficiency anemia, unspecified (principal); E03.9 Hypothyroidism, unspecified; E55.9 Vitamin D deficiency, unspecified; E66.01 Morbid (severe) obesity due to excess calories; R53.83 Other fatigue; Z13.220 Encounter for screening for lipoid disorders; Z98.84 Bariatric surgery status
CPT/HCPCS: 36415; 80053; 80061; 81001; 82306; 82607; 82728; 82746; 83036; 83540; 83721; 83970; 84425; 84439; 84443; 84466; 84481; 84590; 85025; 87086

== ENCOUNTER 2023-02-13 19:36 | Emergency (ER) | payer OTHER ==
[2023-02-13 20:12] LABS: BASOPHILS # (AUTO) 0.1 10^3/uL (0.0-0.1); BASOPHILS % (AUTO) 0.9 %; EOSINOPHILS # (AUTO) 0.2 10^3/uL (0.0-0.7); EOSINOPHILS % (AUTO) 2.9 %; HCT - HEMATOCRIT 42.6 % (37.0-47.0); HGB - HEMOGLOBIN 13.8 g/dL (12.0-16.0); LYMPHOCYTES # (AUTO) 2.3 10^3/uL (1.5-3.5); LYMPHOCYTES % (AUTO) 38.8 %; MEAN CORPUSCULAR HEMOGLOBIN 28.2 pg (27.0-31.0); MEAN CORPUSCULAR HGB CONC 32.4 g/dL (32.0-36.0); MEAN CORPUSCULAR VOLUME 87.1 fL (81.0-99.0); MEAN PLATELET VOLUME 10.3 fL (7.9-10.8); MONOCYTES # (AUTO) 0.5 10^3/uL (0.0-1.0); MONOCYTES % (AUTO) 8.1 %; NEUTROPHILS # (AUTO) 2.9 10^3/uL (1.5-6.6); NEUTROPHILS % (AUTO) 49.1 %; PLT - PLATELET COUNT 358 10^3/uL (130-450); RED BLOOD COUNT 4.89 10^6/uL (4.20-5.40); RED CELL DISTRIBUTION WIDTH 14.2 % (12.0-15.0); WHITE BLOOD COUNT 5.8 x10^3/uL (4.8-10.8)
[2023-02-13 20:21] LABS: CALCIUM 9.8 mg/dL (8.5-10.3); CREATININE 0.7 mg/dL (0.6-1.3); POTASSIUM 3.6 mmol/L (3.5-4.5)
[2023-02-13 20:31] LABS: INR 1.1 (0.8-1.2); PT - PROTHROMBIN TIME 11.4 secs (9.9-12.6)
--- NOTE | 2023-02-13 21:15 | ED Physician Documentation ---
History of Present Illness - Stated complaint Stated Complaint: DVT,RT LEG PX - Chief complaint Chief Complaint: Ext Problem - Additonal information Additional information: 57-year-old female was referred to the emergency department from a local walk-in clinic for evaluation to rule out a deep vein thrombus. She had begun having pain behind the right knee 2 days ago. She however does have a history of what was thought to be a provoked DVT(left leg) secondary to estrogen supplementation in 2016. Unfortunately this DVT became bilateral pulmonary emboli and she was on Coumadin for 1 year. Patient states that about 10 days ago she woke up suddenly and had a severe charley horse in the right leg. It took about 20 minutes before the pain went away and she felt that she was fine following that until the symptoms began today. Patient did travel to [place] recently via airplane in early December. No recent immobilization or surgery. No history of cancer. 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 - Present Medications Home Medications: Ambulatory Orders Medication Instructions Recorded Confirmed Levothyroxine Sodium [Tirosint] 150 mcg PO DAILY 11/07/14 09/06/20 buPROPion [Wellbutrin Sr] 150 mg PO DAILY 11/07/14 09/06/20 Aspirin 325 mg DAILY PM 10/18/18 09/07/20 - Allergies Allergies/Adverse Reactions: Allergies Allergy/AdvReac Type Severity Reaction Status Date / Time buspirone [From BuSpar] Allergy Dizziness Verified 02/13/23 19:44 meperidine HCl * Allergy Headache Verified 02/13/23 19:44 [From Demerol] - Social History Does the pt smoke?: No Smoking Status: Never smoker Does the pt drink ETOH?: No Does the pt have substance abuse?: No - Immunizations Immunizations are current?: Yes PD ED PE NORMAL - General General: Alert and oriented X 3, No acute distress - Cardiac Cardiac: RRR, No murmur - Respiratory Respiratory: No respiratory distress, Clear bilaterally - Derm Derm: Normal color, Warm and dry, No rash, Other (No rash or erythema noted of the right lower extremity.) - Extremities Extremities: No deformity, No calf tenderness / cord (No posterior calf pain tenderness elicited right knee. Mild tenderness with laxity testing. No s welling.) Results - Vitals Vitals: Vital Signs - 24 hr 02/13/23 19:44 Temperature 36.9 C Heart Rate 90 Respiratory 16 Rate Blood Pressure 180/90 H O2 Saturation 98 Oxygen O2 Source Room air - Labs Labs: Laboratory Tests 02/13/23 02/13/23 02/13/23 19:57 19:57 19:57 WBC 5.8 RBC 4.89 Hgb 13.8 Hct 42.6 MCV 87.1 MCH 28.2 MCHC 32.4 RDW 14.2 Plt Count 358 MPV 10.3 Neut # (Auto) 2.9 Lymph # (Auto) 2.3 [place] # (Auto) 0.5 Eos # (Auto) 0.2 Baso # (Auto) 0.1 Absolute Nucleated RBC 0.00 Nucleated RBC % 0.0 PT 11.4 INR 1.1 Sodium 137 Potassium 3.6 Chloride 101 Carbon Dioxide 28 Anion Gap 8.0 BUN 11 Creatinine 0.7 Estimated GFR (MDRD) 86 L Glucose 109 H Calcium 9.8 - Rads (name of study) right leg US DVT Relevant Findings:: Other (Per ct technologist negative for deep vein thrombus.) PD Medical Decision Making - ED course Complexity details: reviewed results, d/w patient ED course: 57-year-old female presents for acute right posterior knee pain in the setting of a history of provoked DVT/PE in 2016 after estrogen use. Patient did recently travel to [place] via airplane. On exam the right leg is neither swollen nor erythematous. No posterior calf pain tenderness was elicited on deep palpation. An ultrasound completed at the bedside showed no evidence of deep vein thrombus. Patient's screening labs CBC, BMP were essentially normal. Clinically there is no evidence suggest a DVT or infection. There was some tenderness with laxity testing and this may suggest some knee joint arthritis or ligamentous injury. Ultrasound showed no findings of a Meredith's cyst either. At this time patient is stable for discharge home. She feels reassured with no findings of infection of DVT. We will continue to follow closely with PCP. The usual emergent return precautions were discussed for worsening symptoms. Departure - Departure Disposition: 01 Home, Self Care Clinical Impression: History of DVT of lower extremity Right knee pain Qualifiers: Chronicity: acute Qualified Code(s): M25.561 - Pain in right knee Condition: Stable Record reviewed to determine appropriate education?: Yes Comments: Kendra the labs obtained today in the emergency department were essentially normal. Your blood counts were normal. Your blood chemistry did not show any worrisome findings. The ultrasound completed at the bedside shows no evidence of the deep vein thrombus. The exam of your leg also does not show any evidence to suggest infection. The ultrasound did not show a Meredith's cyst behind the knee which can sometimes be painful. It is possible that the pain in the knee could be related to some arthritis or joint pain or even a ligament injury but at this point I think you are safe for discharge home. I encourage you to follow closely with your primary care doctor. Return immediately to the ER if you develop leg swelling, have leg redness, develop any sudden onset chest pain or shortness of air or have any other acute emergent concerns.
[2023-02-13 21:41] VITALS: BP 130/74; O2SAT 100
--- NOTE | 2023-02-13 22:17 | Ultrasound Report ---
PROCEDURE: Duplex Ext Veins Right INDICATIONS: swelling, hx of previosu DVT TECHNIQUE: Real-time imaging, as well as color and pulse Doppler interrogation, were performed of the lower extr emity deep veins from the inguinal ligament to the popliteal fossa. Attempted visualization of the ca lf veins was performed. COMPARISON: None. FINDINGS: The deep veins are normally compressible, and free of intraluminal thrombus. Color and pu lse Doppler demonstrate normal phasic intraluminal flow. There is normal augmentation response to di stal compression maneuver. IMPRESSION: No deep venous thrombosis of the visualized lower extremity. Reviewed by: Toby Ramirez on 02/13/2023 10:16 PM [facility] Approved by: Toby Ramirez on 02/13/2023 10:16 PM [facility] Station ID: [id number]
== END 2023-02-13 21:37 | disposition home or self-care (01) ==
LOC: ED 19:36
DX: M25.561 Pain in right knee (principal); E03.9 Hypothyroidism, unspecified; Z86.718 Personal history of other venous thrombosis and embolism; Z79.82 Long term (current) use of aspirin; Z79.899 Other long term (current) drug therapy
CPT/HCPCS: 36415; 80048; 85025; 85610; 99283; 99284

== ENCOUNTER 2023-05-28 15:05 | Emergency (ER) | payer OTHER ==
--- NOTE | 2023-05-28 15:43 | ED Physician Documentation ---
PD HPI CHEST PAIN - Stated complaint Stated Complaint: SOA - Chief complaint Chief Complaint: Cardiac - History obtained from History obtained from: Patient - Additional information Additional information: In 2016 she had a provoked PE that was reportedly quite large related to estrogen use. Over the last week she has developed pretty constant left-sided chest pain with some exertional shortness of breath. She does feel like it might be anxiety. Denies pedal edema or calf pain. No heart history. 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 - Present Medications Home Medications: Ambulatory Orders Medication Instructions Recorded Confirmed Levothyroxine Sodium [Tirosint] 150 mcg PO DAILY 11/07/14 09/06/20 buPROPion [Wellbutrin Sr] 150 mg PO DAILY 11/07/14 09/06/20 Aspirin 325 mg DAILY PM 10/18/18 09/07/20 - Allergies Allergies/Adverse Reactions: Allergies Allergy/AdvReac Type Severity Reaction Status Date / Time buspirone [From BuSpar] Allergy Dizziness Verified 05/28/23 15:09 meperidine HCl * Allergy Headache Verified 05/28/23 15:09 [From Demerol] - Social History Does the pt smoke?: No Smoking Status: Never smoker Does the pt drink ETOH?: No Does the pt have substance abuse?: No - Immunizations Immunizations are current?: Yes - POLST Patient has POLST: No PD ED PE NORMAL - Vitals Vital signs reviewed: Yes - General General: Alert and oriented X 3, No acute distress - HEENT HEENT: PERRL, EOMI - Neck Neck: Supple, no meningeal sign, No bony TTP - Cardiac Cardiac: RRR, No murmur - Respiratory Respiratory: No respiratory distress, Clear bilaterally - Abdomen Abdomen: Non tender - Extremities Extremities: No edema, No calf tenderness / cord - Neuro Neuro: Alert and oriented X 3 Results - Vitals Vitals: Vital Signs - 24 hr 05/28/23 05/28/23 05/28/23 15:09 15:42 16:12 Temperature 36.8 C Heart Rate 100 99 83 Respiratory 18 18 18 Rate Blood Pressure 180/100 H 150/129 H 165/110 H O2 Saturation 100 97 97 05/28/23 17:00 Temperature 36.6 C Heart Rate 82 Respiratory 16 Rate Blood Pressure 140/88 H O2 Saturation 98 Oxygen O2 Source Room air - EKG (time done) 1546 EKG releavant findings:: EKG personally interpreted by author of this note. Relevant findings are: Rate: Rate (enter#) (84) Rhythm: NSR [place]: Normal Intervals: Normal SC QRS: Normal Ischemia: Normal ST segments - Labs Labs: Laboratory Tests 05/28/23 05/28/23 15:33 15:33 WBC 6.1 RBC 4.90 Hgb 13.8 Hct 42.9 MCV 87.6 MCH 28.2 MCHC 32.2 RDW 13.9 Plt Count 362 MPV 10.1 Neut # (Auto) 3.3 Lymph # (Auto) 2.2 [place] # (Auto) 0.5 Eos # (Auto) 0.1 Baso # (Auto) 0.0 Absolute Nucleated RBC 0.00 Nucleated RBC % 0.0 Sodium 139 Potassium 3.8 Chloride 104 Carbon Dioxide 28 Anion Gap 7.0 BUN 10 Creatinine 0.8 Estimated GFR (MDRD) 74 L Glucose 109 H Calcium 9.5 Total Bilirubin 0.4 AST 27 ALT 25 Alkaline Phosphatase 72 Troponin I High Sens 2.3 Total Protein 7.5 Albumin 4.2 Globulin 3.3 Albumin/Globulin Ratio 1.3 Lipase 19 - Rads (name of study) Single view chest x-ray is unremarkable Relevant Findings:: Final report received, EMP independent interpretation of test PD Medical Decision Making - ED course Complexity details: reviewed results (CBC, CMP unremarkable.), considered differential (PE and ACS mostly, less likely dissection.) ED course: 57-year-old woman with history of PE presents with chest pain. It has been going on for about a week so single troponin is predictive and normal/low with n egative EKG. Given the history CTPA was done and also negative. Patient was relieved and declined pain medication while here. Departure - Departure Disposition: 01 Home, Self Care Clinical Impression: Chest pain Condition: Good Record reviewed to determine appropriate education?: Yes Instructions: ED Chest Pain NonCardiac Comments: Both cardiac testing and the angiogram are normal so no evidence of coronary syndrome nor PE. Call your doctor to arrange a follow-up appointment, make the next available appointment. In the interim, return anytime if worse or if new symptoms develop. Forms: PCP List Discharge Date/Time: 05/28/23 17:06
[2023-05-28 15:46] LABS: BASOPHILS % (AUTO) 0.5 %; EOSINOPHILS # (AUTO) 0.1 10^3/uL (0.0-0.7); EOSINOPHILS % (AUTO) 2.3 %; HCT - HEMATOCRIT 42.9 % (37.0-47.0); HGB - HEMOGLOBIN 13.8 g/dL (12.0-16.0); LYMPHOCYTES # (AUTO) 2.2 10^3/uL (1.5-3.5); LYMPHOCYTES % (AUTO) 35.8 %; MEAN CORPUSCULAR HEMOGLOBIN 28.2 pg (27.0-31.0); MEAN CORPUSCULAR HGB CONC 32.2 g/dL (32.0-36.0); MEAN CORPUSCULAR VOLUME 87.6 fL (81.0-99.0); MEAN PLATELET VOLUME 10.1 fL (7.9-10.8); MONOCYTES # (AUTO) 0.5 10^3/uL (0.0-1.0); MONOCYTES % (AUTO) 7.8 %; NEUTROPHILS # (AUTO) 3.3 10^3/uL (1.5-6.6); NEUTROPHILS % (AUTO) 53.4 %; PLT - PLATELET COUNT 362 10^3/uL (130-450); RED CELL DISTRIBUTION WIDTH 13.9 % (12.0-15.0); WHITE BLOOD COUNT 6.1 x10^3/uL (4.8-10.8)
[2023-05-28] MEDS ORDERED: iohexoL-300 100 ML VIAL ONE (15:48)
--- NOTE | 2023-05-28 15:58 | XRAY Report ---
PROCEDURE: Chest 1V INDICATIONS: Chest Pain TECHNIQUE: One view of the chest was acquired. COMPARISON: None. FINDINGS: Surgical changes and devices: None. Lungs and pleura: No pleural effusions or pneumothorax. Lungs are clear. Mediastinum: Mediastinal contours appear normal. Heart size is normal. Bones and chest wall: No suspicious bony lesions. Overlying soft tissues appear unremarkable. IMPRESSION: No acute cardiopulmonary process. Reviewed by: Toby Ramirez MD on 05/28/2023 3:57 PM PST Approved by: Toby Ramirez MD on 05/28/2023 3:57 PM PST Station ID: [id number]
[2023-05-28 16:11] LABS: TROPONIN I HIGH SENSITIVITY 2.3 ng/L (2.3-14.8)
[2023-05-28 16:23] LABS: ALBUMIN 4.2 g/dL (3.2-5.5); ALBUMIN/GLOBULIN RATIO 1.3 (1.0-2.2); BILIRUBIN,TOTAL 0.4 mg/dL (0.2-1.0); CALCIUM 9.5 mg/dL (8.5-10.3); CREATININE 0.8 mg/dL (0.6-1.3); POTASSIUM 3.8 mmol/L (3.5-4.5); TOTAL PROTEIN 7.5 g/dL (6.4-8.9)
[2023-05-28] MEDS: iohexoL-300 100 ML VIAL IVP ONE (16:42)
--- NOTE | 2023-05-28 16:52 | CT Report ---
PROCEDURE: Angio Chest INDICATIONS: chest pain, pe protocol CONTRAST: 80mL Omni 300 TECHNIQUE: After the administration of intravenous contrast, 2 mm axial images were acquired from the pulmonary apices to the posterior costophrenic angles during the arterial phase. In addition, 1 mm lung kernel and 5 mm soft tissue kernel reconstructions were performed. 3-dimensional coronal oblique maximum int ensity projection (MIP) reformats, 8 mm axial MIP, and 5 mm coronal and sagittal MPR reformats were t hen performed through the thorax. For radiation dose reduction, the following was used: automated exp osure control, adjustment of mA and/or kV according to patient size. COMPARISON: None. FINDINGS: Image quality: Suboptimal due to contrast timing, motion artifact and body habitus. Large vessels: No filling defects within the opacified pulmonary arteries, accounting for motion and contrast timing. No evidence of acute aortic syndrome or aortic aneurysm. Lungs and pleura: No consolidation. No pleural effusions. No pneumothorax. No suspicious pulmonary n odules which require follow up. Mediastinum: Heart size is normal. No pericardial effusion. No large vessel abnormality. No mediastin al adenopathy by size criteria. Small hiatal hernia. Chest wall and lower neck: Thyroid is unremarkable. No axillary or supraclavicular adenopathy by size . Bones: No aggressive osseous abnormality. Degenerative disc disease. Anterior wedging of the T12 vert ebral body. Upper Abdomen: Unremarkable. IMPRESSION: No pulmonary embolus. No acute cardiopulmonary process. Reviewed by: Toby Ramirez MD on 05/28/2023 4:51 PM PST Approved by: Toby Ramirez MD on 05/28/2023 4:51 PM PST Station ID: [id number]
[2023-05-28 17:13] VITALS: BP 140/88; O2SAT 98
== END 2023-05-28 17:06 | disposition home or self-care (01) ==
LOC: ED 15:05
DX: R07.9 Chest pain, unspecified (principal); Z79.82 Long term (current) use of aspirin; Z79.899 Other long term (current) drug therapy
CPT/HCPCS: 36415; 71045; 71275; 80053; 83690; 84484; 85025; 93005; 99283; 99284; Q9967

== ENCOUNTER 2023-08-08 14:09 | Outpatient (CLI) | payer OTHER ==
--- NOTE | 2023-08-08 15:17 | XRAY Report ---
Foot 3+V RT HISTORY: 57 years of age, CONTUSION OF RIGHT FOOT TECHNIQUE: Foot 3+V RT COMPARISON: None. FINDINGS/IMPRESSION: Mild degenerative changes of first metatarsal-phalangeal joint. Posterior calcaneal and plantar calca sanford enthesophyte. Mild degenerative change of the midfoot with associated dorsal soft tissue swellin g. No acute fracture or dislocation. Reviewed by: Gladys Velez MD on 08/08/2023 3:16 PM PDT Approved by: Gladys Velez MD on 08/08/2023 3:16 PM PDT Station ID: [id number]
== END 2023-08-08 23:59 | disposition home or self-care (01) ==
LOC: DI.N 14:09
PROVIDERS: ATTEND Physician Assistant
DX: S90.31XA Contusion of right foot, initial encounter (principal)

== ENCOUNTER 2023-08-09 15:35 | Outpatient (CLI) | payer OTHER ==
--- NOTE | 2023-08-09 16:18 | Sleep Patient Instructions ---
Sleep Center Visit Summary - Patient Visit Information Reason for Visit: Initial consult for evaluation of sleep disordered breathing and other sleep issues. - Patient Instructions Instructions Attached: Sleep Study, Sleep Study Home Monitor Additional Instructions: You will be completing a sleep study, either an in-lab polysomnography (PSG) or home sleep study (HST). You will follow-up in the sleep care office after the sleep study is completed to hear the results and talk about therapy, if needed. You will be called by our office staff to schedule this appointment, but you may contact us with any questions. - Clinic Information Contact: [facility] [address] [place] [id number] [email or web address] T: [phone]
--- NOTE | 2023-08-09 16:29 | SLEEP CARE CONSULTATION ---
Information from patient questionnaire entered by Kym Villagran. I have reviewed and concur with the information entered by Kym Villagran. This document represents the service I personally performed and the decisions made by me, Mariama Lucas ARNP. History of Present Illness Service Date and Time: 08/09/2023 1535 Reason for Visit: New patient Chief Complaint: reports: Unrefreshed sleep, Snoring, Observed pauses in breathing, Fatigue, Frequent awakenings at night Date of Onset: SINCE TEEN YRS Usual bedtime: [id number] Time it takes to fall asleep: WITH IN 10 MINS IF NOT ON THE PHONE Snores at night: Yes Observed to quit breathing while asleep: Yes Sleeps alone due to snoring: No Number of times waking at night: 2-3 Reasons for waking at night: reports: Gasping for air (sometimes), Bathroom Toss, Turn, or Twitch while sleeping: Yes Recalls having dreams: Yes Usually gets out of bed at: 0600 Feels refreshed in the morning: No (sometimes do) Morning headache: No Sleepy or fatigued during the day: Yes Ever fallen asleep while driving: No Takes day naps: No Dreams during day naps: No Prior sleep studies: Yes Year and Where: 2016 [facility] Additional HPI information: I had the pleasure of seeing DANNI MCDONALD today regarding the possibility of her having a sleep disorder. Her current complaints are unrefreshed sleep, snoring, fatigue, frequent night awakenings and observed pauses in breathing. She was seen at [facility] and had a sleep study dated 12/19/2016 showing moderate obstructive sleep apnea. She states that she was set up on a CPAP but dis not have follow up with issues she was having and she eventually stopped using the CPAP. She says that she is trying to work on her health and coming in for re-evaluation is part of that process. - Parasomnia Symptoms Ever been unable to move upon waking from sleep: No Walks in sleep: No Talks in sleep: No Ever acted out dreams in sleep: No Ever felt weak in the knees when startled or emotional: No Bothered by creepy, crawly, restless sensations in legs: No Problems with memory or concentration: Yes (sometimes little longer to recall somethings) Subjective Initial Lucas Sleepiness Scale score: 8 (08/09/23) Past Medical History Past Medical History: reports: Arthritis, Hypothyroidism, Anemia, Depression, Other (some high blood pressure readings; DVT/PE in 2016 due to Estrogen) Social History 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 Patient is and lives in [place]. Have you smoked in the past 12 months: No Alcohol use: No Caffeine use: Yes Caffeine amount and frequency: 3-4 X DAY Family History Family history of sleep disordered breathing: Yes Family Hx Sleep Apnea: Father: Snoring, Sleep apnea - Untreated, Sibling: Snoring, Sleep apnea - Treated Allergies and Home Medications Known drug allergies: Yes ( LISTED ) Drug allergies reviewed: Yes Home medication list reviewed: Yes (as listed) Allergy and home medication list: Allergies buspirone [From BuSpar] Allergy (Verified 08/09/23 15:41) Dizziness meperidine HCl * [From Demerol] Allergy (Verified 08/09/23 15:41) Headache gabapentin Adverse Reaction (Verified 08/09/23 16:11) Dizziness Home Medications Levothyroxine Sodium [Tirosint] 150 mcg PO DAILY 11/07/14 [History] buPROPion [Wellbutrin Sr] 150 mg PO DAILY 11/07/14 [History] Aspirin 325 mg DAILY PM 10/18/18 [History] Cholecalciferol (Vitamin D3) [Vitamin D3] See Rx Instructions .ROUTE .COMPLEX 08/09/23 [History] Ferrous Gluconate See Rx Instructions .ROUTE .COMPLEX 08/09/23 [History] Levocetirizine Dihydrochloride [Xyzal] See Rx Instructions .ROUTE .COMPLEX 08/09/23 [History] Mecobalamin [B12 Active] See Rx Instructions .ROUTE .COMPLEX 08/09/23 [History] Multivitamin See Rx Instructions .ROUTE .COMPLEX 08/09/23 [History] Oxymetazoline HCl [Afrin] See Rx Instructions .ROUTE .COMPLEX 08/09/23 [History] Review of Systems Cardiovascular: reports: palpitations, leg or foot swelling Respiratory: reports: sputum production Urinary: reports: incontinence Neurological: denies: head trauma Psychiatric: reports: depression Ear/Nose/Throat: reports: wisdom teeth removed. denies: injury to nose, tonsillectomy Endocrine: reports: thyroid disease Musculoskeletal: reports: joint pain, neck pain Physical Exam Vital signs obtained and entered by: KYM Brown MA Blood Pressure: 141/87 (LEFT ARM) Cuff size: long Heart Rate: 111 O2 Saturation: 96 Height: 5 ft 3 in Weight: 305 lb 12.8 oz Body Mass Index: 54.1 BMI Classification: Morbidly Obese Neck circumference: 16 Mouth and throat: narrow oropharynx Soft palate: long Hard palate: normal Uvula: normal Uvula visualization: 0% Mallampati Class IV Tongue: enlarged in size with teeth ivrk on lateral edges Tonsils: small Neck: normal w/o lymphadenopathy or thyromegaly Heart: regular rate and rhythm Lungs: clear bilaterally Impression and Plan 1. Suspected Obstructive Sleep Apnea-Hypopnea Syndrome, as previously diagnosed and as suggested by a history of loud and irregular snoring, observed cessation of breath while asleep, gasping or choking in sleep, frequent awakening during the night, unrefreshed sleep and cognitive impairment. Narrow oropharynx and obesity are common predisposing factors for obstructive sleep apnea-hypopnea syndrome. I recommend proceeding to polysomnography to confirm the diagnosis and to assess severity. If the patient has significant sleep disordered breathing, a manual CPAP titration study will also be performed to find the optimal treatment pressure. I informed the patient of what the sleep studies involve and after some discussion, obtained agreement to proceed. The pathophysiology of obstructive sleep apnea-hypopnea syndrome was discussed with the patient and health risks of cardiovascular and cerebrovascular disease if not treated. 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 Patient agreed to plan. * Schedule polysomnography * Avoid long distance driving or driving when feeling sleepy. * Avoid alcohol, sedative and muscle relaxant around bedtime. * Attempt to lose weight. * Review instructions provided by trained office staff on how to prepare for the sleep study. * Return for follow-up after sleep study completed. Counseling Topics: Weight loss health impact Plan: PSG and followup Visit Type: In Office Time Spent with Patient (minutes): 32 Provider Statement: I spent 100% of the Face to Face Visit with the patient with greater than 50% spent counseling the patient and coordination of care.
[2023-08-09 16:43] VITALS: BP 141/87; O2SAT 96
== END 2023-08-09 15:36 | disposition home or self-care (01) ==
LOC: SC 15:35
PROVIDERS: ATTEND Nurse Practitioner Family
DX: R06.81 Apnea, not elsewhere classified (principal); G47.8 Other sleep disorders; R41.89 Other symptoms and signs involving cognitive functions and awareness; R06.83 Snoring; E66.01 Morbid (severe) obesity due to excess calories; Z68.43 Body mass index [BMI] 50.0-59.9, adult
CPT/HCPCS: 99203; 99212

== ENCOUNTER 2023-10-15 21:46 | Outpatient (CLI) | payer OTHER | END 2023-10-15 21:47 | disposition home or self-care (01) | LOC: SC 21:46 | PROVIDERS: ATTEND Nurse Practitioner Family | DX: G47.33 Obstructive sleep apnea (adult) (pediatric) (principal); E66.9 Obesity, unspecified; Z68.43 Body mass index [BMI] 50.0-59.9, adult | CPT/HCPCS: 95810 ==

== ENCOUNTER 2023-10-31 13:37 | Outpatient (CLI) | payer OTHER ==
--- NOTE | 2023-10-31 14:14 | Sleep Patient Instructions ---
Sleep Center Visit Summary - Patient Visit Information Reason for Visit: Sleep study follow-up - Patient Instructions Additional Instructions: You are being started on CPAP therapy with pressure setting at 4-15 cmH2O. You will need to call the sleep care office to set up your follow up once you have your CPAP machine to check compliance and response to therapy at that time. You may call the office with any concerns about pressure feeling too low or too much for adjustment, if needed. You should contact DME supplier for any questions or concerns about mask or equipment. Please call office to schedule a follow up appointment in the sleep care office one month after obtaining new device. - Clinic Information Contact: [facility] [address] [place] [address] [email or web address] T: [phone]
--- NOTE | 2023-10-31 14:22 | SLEEP CARE CONSULTATION ---
Information from patient questionnaire entered by Martha Villagran. I have reviewed and concur with the information entered by Martha Villagran. This document represents the service I personally performed and the decisions made by , Mariama Lucas ARNP. History of Present Illness Service Date and Time: 10/31/2023 1337 Initial [place] Sleepiness Scale score: 8 (08/09/23) Current [place] Sleepiness Scale score: 14 (10/31/23) Additional HPI information: DANNI MCDONALD returns for follow up and results of the recently performed polysomnography. The sleep study done on 10/15/2023 showed mild obstructive sleep apnea with an average AHI of 7.7 and darci oxygen saturation of 85%. I explained the pathophysiology behind obstructive sleep apnea. We then spent quite a bit of time discussing different treatment options. For mild obstructive sleep apnea, surgery and oral appliance are alternatives to nasal CPAP therapy but in moderate or severe cases, nasal CPAP is the most effective and reliable treatment. Because apnea is primarily in supine position, then positional management therapy could be effective. Methods discussed such as positioning with pillows, using a T-shirt with tennis balls in the back or commercial products that have a pillow format on back to prevent supine sleep. I reviewed the impact of weight changes on sleep apnea and strongly recommended losing weight. After some discussion, the patient opted to go with the nasal CPAP therapy. Nasal autoCPAP set at 4-15 cmH20 will be ordered with rationale explained. A manual titration study will be ordered if unable to find optimal pressure with office adjustments. I explained how CPAP machine works and what to expect when using the machine. Using CPAP every night in order to get used to it was emphasized. Patient advised to put CPAP mask on before getting into bed so as not to fall asleep without CPAP. To assist acclimation to CPAP use, it could also be used for a short time during day while reading or watching TV. The patient was instructed to call the CPAP supplier to discuss any mechanical problem that may occur. If the mask given is uncomfortable or is difficult to keep on through the night even with adjustment, contact the CPAP supplier as many will replace with another mask style if notified before 30 days. If snoring or perceives is not getting enough air or too much air from the machine, notify this office. Patient does not drink alcohol. Patient was cautioned about risks of drowsy driving until sleepiness symptoms resolve. Patient denies drowsy driving. Sleep Study - Results Type of Sleep Study: Polysomnography (COMPLETEED 10/15/23) Prior sleep studies: Yes Year and Where: 2016 [facility] Polysomnography/Home Sleep Study results: IMPRESSION: The quality of the study is good. The patient had normal sleep efficiency. The sleep architecture was relatively normal as well considering the first night effect. Respiratory monitoring showed mild obstructive sleep apnea-hypopnea (AHI = 7.7) associated with oxyhemoglobin desaturation and mild hypoxia (darci oxygen saturation of 85%). The respiratory events occurred mainly during REM sleep. The patient only slept supine during this study (supine AHI = 7.7; non-supine = 0.00). Snore was moderate to loud in intensity. There was no significant periodic leg movement of sleep. Cardiac rhythm was normal sinus rhythm without significant arrhythmia. No abnormal behavior (parasomnia) observed during the night. Allergies and Home Medications Known drug allergies: Yes (as listed) Drug allergies reviewed: Yes Home medication list reviewed: Yes (no changes) Allergy and home medication list: Allergies buspirone [From BuSpar] Allergy (Verified 10/31/23 13:41) Dizziness meperidine HCl * [From Demerol] Allergy (Verified 10/31/23 13:41) Headache gabapentin Adverse Reaction (Verified 10/31/23 13:41) Dizziness Review of Systems Review of systems same as previous: Yes (NO CHANGE) Physical Exam Vital signs obtained and entered by: MARTHA Brown MA Blood Pressure: 138/83 (RIGHT ARM) Cuff size: long Heart Rate: 74 O2 Saturation: 98 Height: 5 ft 3 in Weight: 308 lb 3.2 oz Body Mass Index: 54.6 BMI Classification: Morbidly Obese Impression and Plan 1. Obstructive Sleep Apnea-Hypopnea Syndrome, mild, with lowest oxygen saturation of 85%. Obviously this is the cause of the patients symptoms of unrefreshed sleep, and excessive daytime sleepiness. Positive pressure therapy could benefit depression. As mentioned above, the patient will be started on nasal autoCPAP therapy with pressure set at 4-15 cmH2O. A manual titration study will be completed if unable to find optimal treatment pressure with office adjustments. Compliance guidelines also reviewed. A copy of compliance guidelines will be given for reference at check out. 2. Hypoxemia, mild, with a darci oxygen saturation of 85% and 4.5 minutes spent under 90%. The baseline oxygen saturation was normal with an average oxygen saturation of 92%. 2. Morbid Obesity. Currently patients BMI is 54.6. Obesity increases the risk of apnea, CPAP pressure requirements and overall health risks especially cardiovascular and diabetes. Thus patient is advised to lose weight. * Nasal auto CPAP therapy, pressure at 4-15 cmH2O. * Attempt to lose weight. * The patient is again cautioned about driving until sleepiness completely resolves. * Return one month after CPAP obtained. I will assess response to therapy and compliance at that time. Counseling Topics: Weight loss health impact Prescriptions: Auto CPAP Follow up with Sleep Care in: 1 year Plan: start CPAP, compliance follow up Visit Type: In Office Time Spent with Patient (minutes): 29 Provider Statement: I spent 100% of the Face to Face Visit with the patient with greater than 50% spent counseling the patient and coordination of care.
[2023-10-31 15:07] VITALS: BP 138/83; O2SAT 98
== END 2023-10-31 13:38 | disposition home or self-care (01) ==
LOC: SC 13:37
PROVIDERS: ATTEND Nurse Practitioner Family
DX: G47.33 Obstructive sleep apnea (adult) (pediatric) (principal); R09.02 Hypoxemia; E66.01 Morbid (severe) obesity due to excess calories; Z68.43 Body mass index [BMI] 50.0-59.9, adult
CPT/HCPCS: 99212; 99213